=== PATIENT | female | born 1955 | race Two or more races ===

== ENCOUNTER 2024-08-20 09:04 | Emergency (ER) | payer OTHER ==
[~2024-08-20] VITALS: Ht 160 cm; Wt 65.8 kg
[2024-08-20] MEDS ORDERED: [UNRECOGNIZED DRUG - OTHER] (09:32)
[2024-08-20] MEDS ORDERED: KETOROLAC TROMETHAMINE 60 MG VIAL IM STA (10:21)
[2024-08-20 11:30] LABS: HEMATOCRIT 40.8 % (36.0-45.00); MEAN CELL VOLUME 84.2 fL (80.00-100.00); MEAN CORPUSCULAR HEMOGLOBIN 28.9 pg (27.00-32.0); MEAN CORPUSCULAR HGB CONC 34.4 g/dl (32.0-36.0); PLATELET COUNT 230 K/uL (150-450); RED BLOOD COUNT 4.85 M/uL (4.00-6.00); RED CELL DISTRIBUTION WIDTH 14.8 % (11.5-14.5)
== END 2024-08-20 12:37 | disposition home or self-care (01) ==
LOC: ER 09:07
DX: R53.81 Other malaise (principal); J06.9 Acute upper respiratory infection, unspecified; Z20.822 Contact with and (suspected) exposure to COVID-19
CPT/HCPCS: 36415; 96372; 99282; J1885